=== PATIENT | male | born 1945 | race Caucasian/White ===

== ENCOUNTER 2024-01-20 19:28 | Inpatient (IN) | payer OTHER ==
[~2024-01-20] VITALS: Ht 165.1 cm; Wt 74.1 kg
[2024-01-20 19:32] VITALS: BP_SYST 130; PULSE 80; RESP 18; TEMP 97.6; O2SAT 96
[2024-01-20] MEDS: ACETAMINOPHEN 500 MG TABLET PO ONE (20:23)
[2024-01-20 20:26] LABS: BASOPHILS % (AUTO) 0.5 % (0.0-2.0); EOSINOPHILS # (AUTO) 0.1 K/uL (0.0-0.4); EOSINOPHILS % (AUTO) 2.3 % (0.0-4.0); HEMATOCRIT 43.4 % (36-54); HEMOGLOBIN 14.8 g/dL (14.0-18.0); LYMPHOCYTES # (AUTO) 2.1 K/uL (1.0-5.5); MEAN CORPUSCULAR HEMOGLOBIN 31 pg (27-31); MEAN CORPUSCULAR HGB CONC 34 % (32-36); MEAN CORPUSCULAR VOLUME 91 fL (79.0-98.0); MONOCYTES # (AUTO) 0.6 K/uL (0.0-1.0); MONOCYTES % (AUTO) 9.9 % (1.7-9.3); NEUTROPHILS # (AUTO) 3.4 K/uL (1.8-7.7); NEUTROPHILS % (AUTO) 54.3 % (40.0-70.0); PLATELET COUNT (AUTO) 153 K/uL (130-430); RED BLOOD CELL COUNT(AUTO) 4.79 MIL/uL (4.2-6.2); RED CELL DISTRIBUTION WIDTH 14.4 % (9.0-15.0); WHITE BLOOD COUNT (AUTO) 6.3 K/uL (4.8-10.8)
[2024-01-20 20:40] LABS: ANION GAP 8 (5-15); CARBON DIOXIDE 30 mmol/L (23-29); CHLORIDE 107 mmol/L (98-107); GLUCOSE 128 mg/dL (74-106); POTASSIUM 3.5 mmol/L (3.5-5.1); SODIUM SERUM 145 mmol/L (136-145); UREA NITROGEN, BLOOD 20 mg/dL (8-21)
[2024-01-20] MEDS ORDERED: MUPIROCIN 2% TOPICAL OINTMENT 22 GM NS PRN (21:00)
[2024-01-20] MEDS ORDERED: DOCUSATE SODIUM 100 MG CAPSULE PO PRN (21:00)
[2024-01-20] MEDS ORDERED: LORazepam 2 MG/ML VIAL IVP PRN (21:00)
[2024-01-20] MEDS ORDERED: ONDANSETRON HCL 4 MG/2 ML VIAL IVP PRN (21:00)
[2024-01-20] MEDS ORDERED: MAGNESIUM SULFATE 50 ML IV PRN (21:00)
[2024-01-20] MEDS ORDERED: MORPHINE 2 MG/ML INJ. SYRINGE IVP PRN (21:00)
[2024-01-20] MEDS ORDERED: POTASSIUM CHLORIDE 20 MEQ TABLET.ER PO PRN (21:00)
[2024-01-20] MEDS ORDERED: ZOLPIDEM TARTRATE 5 MG TABLET PO PRN (21:00)
[2024-01-20] MEDS ORDERED: PIPERACILLIN/TAZOBACTAM 3.375 GM/VIAL (ZOSYN) IV ONE (21:03)
[2024-01-20] MEDS: PIPERACILLIN/TAZO 3.375 GM in NS 50 ML IV ONE (21:07)
[2024-01-20] MEDS: NACL 0.9% 1,000 ML IV SCH (21:26)
[2024-01-20] MEDS: HEPARIN SODIUM,PORCINE 5,000 UNITS/ML VIAL SUBCUT SCH (21:34)
[2024-01-20] MEDS: MORPHINE 2 MG/ML INJ. SYRINGE IVP PRN (21:54)
[2024-01-20] MEDS ORDERED: TAMS0.4C96 PO (23:01)
[2024-01-20] MEDS ORDERED: DICL100G19 (23:01)
[2024-01-20] MEDS ORDERED: MOM PO (23:01)
[2024-01-20] MEDS ORDERED: CHOL100062 PO (23:01)
[2024-01-20] MEDS ORDERED: SERT25TA PO (23:01)
[2024-01-21] VITALS (7 sets, daily range): BP systolic 138–154; PULSE 40–66; RESP 16–17; TEMP 97.5–98.2; O2SAT 93–96
[2024-01-21] MEDS ORDERED: NALOXONE HCL 0.4 MG/ML AMP (NARCAN) IVP PRN (01:15)
[2024-01-21] MEDS: HYDROcodone/ACETAMIN 5-325 MG TAB (NORCO/ VICODIN) PO PRN (05:39)
[2024-01-21 05:52] LABS: BASOPHILS % (AUTO) 0.5 % (0.0-2.0); EOSINOPHILS # (AUTO) 0.2 K/uL (0.0-0.4); EOSINOPHILS % (AUTO) 3.4 % (0.0-4.0); HEMATOCRIT 39.2 % (36-54); HEMOGLOBIN 13.6 g/dL (14.0-18.0); LYMPHOCYTES # (AUTO) 2.3 K/uL (1.0-5.5); LYMPHOCYTES % (AUTO) 42.3 % (20.5-51.5); MEAN CORPUSCULAR HEMOGLOBIN 32 pg (27-31); MEAN CORPUSCULAR HGB CONC 35 % (32-36); MEAN CORPUSCULAR VOLUME 91 fL (79.0-98.0); MONOCYTES # (AUTO) 0.6 K/uL (0.0-1.0); MONOCYTES % (AUTO) 10.2 % (1.7-9.3); NEUTROPHILS # (AUTO) 2.4 K/uL (1.8-7.7); NEUTROPHILS % (AUTO) 43.6 % (40.0-70.0); PLATELET COUNT (AUTO) 155 K/uL (130-430); RED BLOOD CELL COUNT(AUTO) 4.33 MIL/uL (4.2-6.2); RED CELL DISTRIBUTION WIDTH 14.4 % (9.0-15.0); WHITE BLOOD COUNT (AUTO) 5.4 K/uL (4.8-10.8)
[2024-01-21 06:21] LABS: ANION GAP 9 (5-15); CALCIUM 8.2 mg/dL (8.4-11.0); CARBON DIOXIDE 25 mmol/L (23-29); CHLORIDE 110 mmol/L (98-107); CREATININE 0.56 mg/dL (0.55-1.30); GLUCOSE 107 mg/dL (74-106); POTASSIUM 3.5 mmol/L (3.5-5.1); SODIUM SERUM 144 mmol/L (136-145); UREA NITROGEN, BLOOD 20 mg/dL (8-21)
[2024-01-21] MEDS ORDERED: cefTRIAXone 1 GM in D5W 50 ML IV SCH (09:00)
[2024-01-21] MEDS: CEFTRIAXONE SOD 1 GM/ D5W 50 ML IV ONE (10:10)
[2024-01-21] MEDS: amLODIPine BESYLATE 5 MG TABLET PO ONE (13:20)
[2024-01-21] MEDS: ACETAMINOPHEN 500 MG TABLET PO PRN (17:02)
[2024-01-21] MEDS: SERTRALINE HCL 50 MG TABLET PO SCH (21:14)
[2024-01-22] VITALS (8 sets, daily range): BP systolic 105–150; PULSE 42–91; RESP 16–18; TEMP 96.7–98.3; O2SAT 93–97
[2024-01-22 06:03] LABS: BASOPHILS % (AUTO) 0.4 % (0.0-2.0); EOSINOPHILS # (AUTO) 0.2 K/uL (0.0-0.4); EOSINOPHILS % (AUTO) 2.9 % (0.0-4.0); HEMATOCRIT 39.5 % (36-54); HEMOGLOBIN 13.6 g/dL (14.0-18.0); LYMPHOCYTES # (AUTO) 2.6 K/uL (1.0-5.5); LYMPHOCYTES % (AUTO) 43.7 % (20.5-51.5); MEAN CORPUSCULAR HEMOGLOBIN 31 pg (27-31); MEAN CORPUSCULAR HGB CONC 34 % (32-36); MEAN CORPUSCULAR VOLUME 91 fL (79.0-98.0); MONOCYTES # (AUTO) 0.4 K/uL (0.0-1.0); MONOCYTES % (AUTO) 7.3 % (1.7-9.3); NEUTROPHILS # (AUTO) 2.7 K/uL (1.8-7.7); NEUTROPHILS % (AUTO) 45.7 % (40.0-70.0); PLATELET COUNT (AUTO) 158 K/uL (130-430); RED BLOOD CELL COUNT(AUTO) 4.33 MIL/uL (4.2-6.2); RED CELL DISTRIBUTION WIDTH 14.3 % (9.0-15.0)
[2024-01-22 06:18] LABS: ANION GAP 8 (5-15); CALCIUM 7.8 mg/dL (8.4-11.0); CARBON DIOXIDE 26 mmol/L (23-29); CHLORIDE 108 mmol/L (98-107); CREATININE 0.41 mg/dL (0.55-1.30); GLUCOSE 88 mg/dL (74-106); POTASSIUM 3.8 mmol/L (3.5-5.1); SODIUM SERUM 142 mmol/L (136-145); UREA NITROGEN, BLOOD 12 mg/dL (8-21)
[2024-01-22] MEDS: TAMSULOSIN HCL 0.4 MG CAP PO SCH (08:50)
[2024-01-22] MEDS: amLODIPine BESYLATE 5 MG TABLET PO SCH (08:51)
[2024-01-22] MEDS: CEFTRIAXONE SOD 1 GM/ D5W 50 ML IV SCH (10:22)
[2024-01-23 00:35] VITALS: BP_SYST 140; PULSE 53; RESP 17; TEMP 97.3; O2SAT 96
[2024-01-23 06:26] LABS: BASOPHILS # (AUTO) 0.1 K/uL (0.0-0.2); BASOPHILS % (AUTO) 0.9 % (0.0-2.0); EOSINOPHILS # (AUTO) 0.2 K/uL (0.0-0.4); EOSINOPHILS % (AUTO) 2.6 % (0.0-4.0); HEMATOCRIT 39.1 % (36-54); HEMOGLOBIN 13.2 g/dL (14.0-18.0); LYMPHOCYTES # (AUTO) 2.7 K/uL (1.0-5.5); LYMPHOCYTES % (AUTO) 40.1 % (20.5-51.5); MEAN CORPUSCULAR HEMOGLOBIN 31 pg (27-31); MEAN CORPUSCULAR HGB CONC 34 % (32-36); MEAN CORPUSCULAR VOLUME 92 fL (79.0-98.0); MONOCYTES # (AUTO) 0.6 K/uL (0.0-1.0); MONOCYTES % (AUTO) 8.7 % (1.7-9.3); NEUTROPHILS # (AUTO) 3.2 K/uL (1.8-7.7); NEUTROPHILS % (AUTO) 47.7 % (40.0-70.0); PLATELET COUNT (AUTO) 157 K/uL (130-430); RED BLOOD CELL COUNT(AUTO) 4.25 MIL/uL (4.2-6.2); RED CELL DISTRIBUTION WIDTH 14.4 % (9.0-15.0); WHITE BLOOD COUNT (AUTO) 6.7 K/uL (4.8-10.8)
[2024-01-23 06:32] LABS: ANION GAP 7 (5-15); CALCIUM 7.9 mg/dL (8.4-11.0); CARBON DIOXIDE 27 mmol/L (23-29); CHLORIDE 108 mmol/L (98-107); GLUCOSE 89 mg/dL (74-106); POTASSIUM 3.9 mmol/L (3.5-5.1); SODIUM SERUM 142 mmol/L (136-145); UREA NITROGEN, BLOOD 15 mg/dL (8-21)
[2024-01-23 07:49] VITALS: BP_SYST 133; PULSE 62; RESP 13; TEMP 98.2; O2SAT 96
[2024-01-23 08:10] VITALS: O2SAT 96
[2024-01-23] MEDS: cefTRIAXone 1 GM VIAL IM SCH (09:22)
[2024-01-23 11:08] VITALS: BP_SYST 143; PULSE 47; RESP 16; TEMP 97.2; O2SAT 93
[2024-01-23 16:21] VITALS: BP_SYST 129; PULSE 48; RESP 16; TEMP 96.9; O2SAT 95
[2024-01-23 20:30] VITALS: BP_SYST 155; PULSE 59; RESP 16; TEMP 98.6; O2SAT 94
[2024-01-24] VITALS (7 sets, daily range): BP systolic 119–146; PULSE 44–96; RESP 16–18; TEMP 97.2–97.8; O2SAT 95–100
[2024-01-24 06:57] LABS: BASOPHILS % (AUTO) 0.4 % (0.0-2.0); EOSINOPHILS # (AUTO) 0.1 K/uL (0.0-0.4); EOSINOPHILS % (AUTO) 2.6 % (0.0-4.0); HEMATOCRIT 40.7 % (36-54); LYMPHOCYTES # (AUTO) 2.5 K/uL (1.0-5.5); LYMPHOCYTES % (AUTO) 44.6 % (20.5-51.5); MEAN CORPUSCULAR HEMOGLOBIN 31 pg (27-31); MEAN CORPUSCULAR HGB CONC 35 % (32-36); MEAN CORPUSCULAR VOLUME 91 fL (79.0-98.0); MONOCYTES # (AUTO) 0.4 K/uL (0.0-1.0); MONOCYTES % (AUTO) 7.8 % (1.7-9.3); NEUTROPHILS # (AUTO) 2.5 K/uL (1.8-7.7); NEUTROPHILS % (AUTO) 44.6 % (40.0-70.0); PLATELET COUNT (AUTO) 175 K/uL (130-430); RED CELL DISTRIBUTION WIDTH 14.3 % (9.0-15.0); WHITE BLOOD COUNT (AUTO) 5.5 K/uL (4.8-10.8)
[2024-01-24 07:06] LABS: ANION GAP 7 (5-15); CALCIUM 8.9 mg/dL (8.4-11.0); CARBON DIOXIDE 27 mmol/L (23-29); CHLORIDE 106 mmol/L (98-107); GLUCOSE 91 mg/dL (74-106); POTASSIUM 3.7 mmol/L (3.5-5.1); SODIUM SERUM 140 mmol/L (136-145); UREA NITROGEN, BLOOD 10 mg/dL (8-21)
[2024-01-24] MEDS ORDERED: MUPI15CR12 TP (11:19)
== END 2024-01-24 17:55 | DRG 727 ==
LOC: SED 19:28 → SMU 21:10 → STU 23:50 → SMU 23:56 → STU 01-21 01:08
PROVIDERS: ADMIT General Practice; ATTEND General Practice
DX: N49.2 Inflammatory disorders of scrotum (principal); G82.50 Quadriplegia, unspecified; F03.93 Unspecified dementia, unspecified severity, with mood disturbance; E83.51 Hypocalcemia; N40.0 Benign prostatic hyperplasia without lower urinary tract symptoms; G89.4 Chronic pain syndrome; I11.9 Hypertensive heart disease without heart failure; F32.A Depression, unspecified; Z79.899 Other long term (current) drug therapy
CPT/HCPCS: 36415; 80048; 83037; 83735; 84484; 85025; 87040; 87081; 93005; 93306; 96365; 96375; 97110-GP; 99285; G0378; J0696; J1644; J2270; J2543; J7060